=== PATIENT | female | born 1995 | race African-American/Black ===

== ENCOUNTER 2018-01-31 03:09 | Emergency (ER) | payer MEDICAID ==
[~2018-01-31] VITALS: Ht 165.1 cm; Wt 89.0 kg
[2018-01-31 04:10] VITALS: BP 132/81
== END 2018-01-31 06:30 | disposition left against medical advice (07) ==
LOC: ER 03:53
DX: R10.9 Unspecified abdominal pain (principal); Z53.21 Procedure and treatment not carried out due to patient leaving prior to being seen by health care provider
CPT/HCPCS: 81025